=== PATIENT | male | born 1985 | race Caucasian/White ===

== ENCOUNTER 2016-09-17 01:11 | Emergency (ER) | payer OTHER ==
[2016-09-17] MEDS ORDERED: ONDANSETRON HCL INJ/PF 4 MG/2 ML SDV IV ONE (02:37)
[2016-09-17] MEDS ORDERED: NORMAL SALINE 1000 ML 1,000 ML IV ONE (02:37)
[2016-09-17 03:47] LABS: ALANINE AMINOTRANSFERASE 48 U/L (21-72); ALBUMIN 3.9 g/dL (3.5-5.0); ALKALINE PHOSPHATASE 75 U/L (38-126); ANION GAP 11 (5-19); ASPARTATE AMINO TRANSFERASE 32 U/L (17-59); BLOOD UREA NITROGEN 27 mg/dL (7-20); CALCIUM 9.1 mg/dL (8.4-10.2); CARBON DIOXIDE 29 mmol/L (22-30); CHLORIDE 102 mmol/L (98-107); CREATININE RESULT 1.13 mg/dL (0.52-1.25); GLUCOSE 125 mg/dL (75-110); POTASSIUM 4.5 mmol/L (3.6-5.0); SODIUM 142.2 mmol/L (137-145); TOTAL PROTEIN 6.4 g/dL (6.3-8.2)
[2016-09-17 03:56] LABS: HEMATOCRIT 49.9 % (37.9-51.0); HEMOGLOBIN 17.2 g/dL (13.5-17.0); HGB HCT DIFFERENCE 1.7; MEAN CORPUSCULAR HEMOGLOBIN 32.3 pg (27.0-33.4); MEAN CORPUSCULAR HGB CONC 34.4 g/dL (32.0-36.0); MEAN CORPUSCULAR VOLUME 94 fl (80-97); RED BLOOD COUNT 5.32 10^6/uL (4.35-5.55); RED CELL DISTRIBUTION WIDTH 13.5 % (11.5-14.0); WHITE BLOOD COUNT 8.8 10^3/uL (4.0-10.5)
[2016-09-17 04:01] LABS: BAND NEUTROPHILS % (MANUAL) 10 % (3-5); BASOPHILS % (MANUAL) 0 % (0-2); EOSINOPHILS % (MANUAL) 0 % (0-6); LYMPHOCYTES % (MANUAL) 5 % (13-45); TOTAL CELLS COUNTED 100
[2016-09-17 04:03] LABS: OVALOCYTES SLIGHT; POIKILOCYTOSIS SLIGHT; POLYCHROMASIA SLIGHT
[2016-09-17] MEDS ORDERED: RINGERS SOLUTION,LACTATED 1,000 ML IV ONE (04:13)
--- NOTE | 2016-09-17 04:24 | ER Document Report ---
ED GI/ - General Mode of Arrival: Ambulatory Information source: Patient TRAVEL OUTSIDE OF THE [place] IN LAST 30 DAYS: No - HPI Patient complains to provider of: Vomiting Onset: This afternoon Timing/Duration: Sudden Quality of pain: Sharp Location: Other - right sided Associated symptoms: Diarrhea <ARYAN GUSTAFSON - Last Filed: 09/17/16 04:57> <MARQUITA BURR - Last Filed: 09/17/16 06:10> - General Chief Complaint: Nausea/Vomiting/Diarrhea Stated Complaint: ABDOMINAL PAIN Notes: Patient is a 31-year-old male that presents to the emergency department today with complaints of vomiting, diarrhea, and right-sided abdominal pain. Patient states his symptoms began "all of a sudden" earlier today. Patient states he has a slight headache currently but he states his gastrointestinal symptoms are much better after receiving the IV fluids and nausea medications that were given in triage. Patient states he has been able to keep down some of his dejah mist since arriving here. Patient has not vomited since being treated in triage. Patient denies any sick contacts. (ARYAN GUSTAFSON) - Related Data Allergies/Adverse Reactions: No Known Allergies Allergy (Unverified 09/17/16 02:53) Past Medical History - General Information source: Patient - Social History Smoking Status: Never Smoker Cigarette use (# per day): No Frequency of alcohol use: None Drug Abuse: None Lives with: Family Family History: Reviewed & Not Pertinent Patient has suicidal ideation: No Patient has homicidal ideation: No - Medical History Medical History: Negative Surgical Hx: Negative <ARYAN GUSTAFSON - Last Filed: 09/17/16 04:57> Review of Systems - Review of Systems Constitutional: No symptoms reported EENT: No symptoms reported Cardiovascular: No symptoms reported Respiratory: No symptoms reported Gastrointestinal: See HPI, Abdominal pain, Diarrhea, Vomiting Genitourinary: No symptoms reported Male Genitourinary: No symptoms reported Musculoskeletal: No symptoms reported Skin: No symptoms reported Hematologic/Lymphatic: No symptoms reported Neurological/Psychological: See HPI, Headaches -: Yes All other systems reviewed and negative <ARYAN GUSTAFSON - Last Filed: 09/17/16 04:57> Physical Exam <ARYAN GUSTAFSON - Last Filed: 09/17/16 04:57> <MARQUITA BURR - Last Filed: 09/17/16 06:10> - Vital signs Vitals: Temp Pulse Resp BP Pulse Ox 97.9 F 103 H 24 H 107/58 L 95 09/17/16 01:51 09/17/16 01:51 09/17/16 01:51 09/17/16 01:51 09/17/16 01:51 (ARYAN GUSTAFSON) (MARQUITA BURR) - Notes Notes: Physical Exam: General: Alert, appears well. HEENT: Normocephalic. Atraumatic. PERRL. Extraocular movements intact. Oropharynx clear. Dry mucous membranes. Neck: Supple. Non-tender. Respiratory: No respiratory distress. Clear and equal breath sounds bilaterally. Cardiovascular: Regular rate and rhythm. Abdominal: Normal Inspection. Non-tender. No distension. Normal Bowel Sounds. Back: Non-tender. No deformity or step off. Extremities: Moves all four extremities. Upper extremities: Normal inspection. Normal ROM. Lower extremities: Normal inspection. No edema. Normal ROM. Neurological: Normal cognition. AAOx4. Normal speech. Psychological: Normal affect. Normal Mood. Skin: Warm. Dry. Normal color. (ARYAN GUSTAFSON) Course - Laboratory Result Diagrams: 09/17/16 03:00 09/17/16 03:00 <ARYAN GUSTAFSON - Last Filed: 09/17/16 04:57> - Laboratory Result Diagrams: 09/17/16 03:00 09/17/16 03:00 <MARQUITA BURR - Last Filed: 09/17/16 06:10> - Re-evaluation Re-evalutation: 09/17/16 Patient with nausea vomiting diarrhea. No abdominal pain or tenderness. Patient appears well otherwise. Able to take by mouth. Will be discharged home with Zofran. Stable for discharge. (MARQUITA BURR) - Vital Signs Vital signs: Temp Pulse Resp BP Pulse Ox 99.2 F 98 18 131/66 H 97 09/17/16 05:41 09/17/16 05:41 09/17/16 05:41 09/17/16 05:41 09/17/16 05:41 (ARYAN GUSTAFSON) (MARQUITA BURR) - Laboratory Laboratory results interpreted by me: 09/17/16 09/17/16 03:00 03:00 Hgb 17.2 H Plt Count 149 L Seg Neuts % (Manual) 81 H Band Neutrophils % 10 H Lymphocytes % (Manual) 5 L Abs Lymphs (Manual) 0.4 L BUN 27 H Glucose 125 H (ARYAN GUSTAFSON) (MARQUITA BURR) Discharge <ARYAN GUSTAFSON - Last Filed: 09/17/16 04:57> <MARQUITA BURR - Last Filed: 09/17/16 06:10> - Discharge Clinical Impression: Dehydration Vomiting Qualifiers: Vomiting type: unspecified Vomiting Intractability: non-intractable Nausea presence: with nausea Qualified Code(s): R11.2 - Nausea with vomiting, unspecified Condition: Stable Disposition: HOME, SELF-CARE Instructions: Vomiting ([facility]), Diarrhea, Nonspecific ([facility]), Dehydration ([facility]) Forms: Return to Work Scribe Attestation: 09/17/16 06:10 I personally performed the services described in the documentation, reviewed and edited the documentation which was dictated to the scribe in my presence, and it accurately records my words and actions. (MARQUITA BURR) Scribe Documentation - Scribe Written by Oren:: Oren Garcia, [id number] 09/17/2016 acting as scribe for :: Candelario <ARYAN GUSTAFSON - Last Filed: 09/17/16 04:57>
[2016-09-17 04:43] LABS: APPEARANCE,URINE CLEAR; BILIRUBIN,URINE NEGATIVE (NEGATIVE); GLUCOSE, URINE NEGATIVE (NEGATIVE); KETONES,URINE NEGATIVE (NEGATIVE); LEUKOCYTE ESTERASE,URINE NEGATIVE (NEGATIVE); NITRITE,URINE NEGATIVE (NEGATIVE); PROTEIN,URINE NEGATIVE (NEGATIVE); URINE SPECIFIC GRAVITY 1.029; UROBILINOGEN,URINE NEGATIVE mg/dL (<2.0)
[2016-09-17] MEDS ORDERED: ONDANSETRON ODT 4 MG TAB (6 TAB/DSPK) PO PRN (05:06)
[2016-09-17 05:43] VITALS: BP 131/66
== END 2016-09-17 05:43 | disposition home or self-care (01) ==
LOC: ER 01:11
DX: R11.2 Nausea with vomiting, unspecified (principal); R19.7 Diarrhea, unspecified; E86.0 Dehydration; R10.9 Unspecified abdominal pain; R51 Headache
CPT/HCPCS: 99284; 96374; 36415; 85025; 80053; 81001; J2405